=== PATIENT | male | born 2005 | race Two or more races ===

== ENCOUNTER 2025-06-07 15:45 | Emergency (ER) | payer MEDICAID ==
[~2025-06-07] VITALS: Ht 180.3 cm; Wt 68.2 kg
[2025-06-07 15:48] VITALS: BP 123/78; PULSE 63; RESP 18; TEMP 97.5; O2SAT 100
[2025-06-07] MEDS: IBUPROFEN 600 MG TABLET PO ONE (16:31)
== END 2025-06-07 16:42 | disposition home or self-care (01) ==
LOC: EMS 15:45
DX: S69.91XA Unspecified injury of right wrist, hand and finger(s), initial encounter (principal); X58.XXXA Exposure to other specified factors, initial encounter; Y93.67 Activity, basketball; Y92.89 Other specified places as the place of occurrence of the external cause; Y99.9 Unspecified external cause status
CPT/HCPCS: 99282; Z7502; Z7610